=== PATIENT | female | born 1975 | race Caucasian/White ===

== ENCOUNTER → 2023-07-01 08:42 | Outpatient (REF) | payer OTHER, SELFPAY | LOC: HWWDC 08:42 | PROVIDERS: ATTENDING PHYSICIAN Internal Medicine | DX: Z12.31 Encounter for screening mammogram for malignant neoplasm of breast (principal) | CPT/HCPCS: 77063; 77067 ==

== ENCOUNTER → 2023-07-27 07:58 | Outpatient (REF) | payer OTHER, SELFPAY | LOC: RAD 07:58 | PROVIDERS: ATTENDING PHYSICIAN Nurse Practitioner | DX: M54.16 Radiculopathy, lumbar region (principal) | CPT/HCPCS: 72110 ==

== ENCOUNTER 2023-11-17 07:31 | Outpatient (RCR) | payer OTHER, SELFPAY | END 2023-11-23 07:41 | disposition home or self-care (01) | LOC: RPT 07:31 | PROVIDERS: ATTENDING PHYSICIAN Orthopaedic Surgery; FAMILY PHYSICIAN Internal Medicine | DX: M67.51 Plica syndrome, right knee (principal); Z73.6 Limitation of activities due to disability | CPT/HCPCS: 97110; 97140; 97162; 97535 ==

== ENCOUNTER 2024-01-19 06:34 | Outpatient (RCR) | payer OTHER, SELFPAY | END 2024-01-19 23:59 | disposition home or self-care (01) | LOC: RPT 06:34 | PROVIDERS: FAMILY PHYSICIAN Internal Medicine | DX: M67.51 Plica syndrome, right knee (principal); M25.561 Pain in right knee; Z73.6 Limitation of activities due to disability; R26.2 Difficulty in walking, not elsewhere classified; R26.89 Other abnormalities of gait and mobility | CPT/HCPCS: 97010; 97110; 97163; 97535 ==

== ENCOUNTER 2024-01-26 06:23 | Outpatient (RCR) | payer OTHER, SELFPAY | END 2024-01-26 12:47 | disposition home or self-care (01) | LOC: RPT 06:23 | PROVIDERS: FAMILY PHYSICIAN Internal Medicine | DX: M67.51 Plica syndrome, right knee (principal); M25.561 Pain in right knee; Z73.6 Limitation of activities due to disability; R26.2 Difficulty in walking, not elsewhere classified; R26.89 Other abnormalities of gait and mobility; M62.81 Muscle weakness (generalized) | CPT/HCPCS: 97535 ==

== ENCOUNTER → 2025-02-02 10:34 | Outpatient (REF) | payer OTHER, SELFPAY | LOC: WDC 10:34 | PROVIDERS: ATTENDING PHYSICIAN Obstetrics & Gynecology; FAMILY PHYSICIAN Internal Medicine | DX: N64.4 Mastodynia (principal) | CPT/HCPCS: 76642; 77062; 77066 ==